=== PATIENT | male | born 1970 | race African-American/Black ===

== ENCOUNTER 2023-02-28 21:39 | Emergency (ER) | payer OTHER ==
[~2023-02-28] VITALS: Ht 167.6 cm; Wt 68.0 kg
[2023-02-28] MEDS ORDERED: KETO10TA2 PO (21:45)
[2023-02-28] MEDS ORDERED: FLUORESCEIN SODIUM OPHTH 1 EA STRIP ONE (21:47)
[2023-02-28] MEDS ORDERED: KETOROLAC TROMETHAMINE INJ 60 MG/2 ML VIAL IM ONE ×2 (21:50→22:00)
[2023-03-01 00:41] VITALS: BP 138/86; TEMP 98.1; O2SAT 99
== END 2023-03-01 00:42 | disposition home or self-care (01) ==
LOC: ER 21:40
DX: T65.891A Toxic effect of other specified substances, accidental (unintentional), initial encounter (principal); H10.213 Acute toxic conjunctivitis, bilateral; Y92.89 Other specified places as the place of occurrence of the external cause
CPT/HCPCS: 99283; 96372; J1885